=== PATIENT | female | born 1955 ===

== ENCOUNTER 2018-07-03 17:59 | Emergency (ER) | payer BC ==
[2018-07-03 18:26] VITALS: O2SAT 98
[2018-07-03] MEDS ORDERED: Sodium Chloride 0.9% 1,000 ML IV STA (19:42)
--- NOTE | 2018-07-03 20:46 | ED PDOC ---
HPI: Abdomen Time Seen by Provider: 07/03/18 19:20 Chief Complaint (Nursing): GI Problem History Per: Patient History/Exam Limitations: no limitations Onset/Duration Of Symptoms: Days Outside of [place] travel?: No Current Symptoms Are (Timing): Still Present Location Of Pain/Discomfort: Epigastric Additional Complaint(s): 63 year old with PMHx of HTN, HLD, thyroid disease, hiatal hernia? presenting with nausea, vomiting, diarrhea, and abdominal pain x 3 days. States she's had 3-4 episodes of each everyday, states she is unable to keep anything down. States she has burning epigastric pain that radiates up into her mouth. No fevers, chills, but states she's lost 5 pounds since the symptoms started. Past Medical History Reviewed: Historical Data, Nursing Documentation, Vital Signs Vital Signs: Last Vital Signs Temp 98.3 F 07/03/18 18:23 Pulse 84 07/03/18 18:23 Resp 16 07/03/18 18:23 BP 123/80 07/03/18 18:23 Pulse Ox 98 07/03/18 18:23 - Medical History PMH: Arthritis, Hiatal Hernia, HTN, Hypothyroidism - Family History Family History: States: Unknown Family Hx - Home Medications Home Medications: Ambulatory Orders Medication Instructions Recorded Famotidine [Pepcid] 20 mg PO BID #20 tab 07/03/18 Ondansetron ODT [Zofran ODT] 4 mg PO Q8 PRN #12 odt 07/03/18 - Allergies Allergies/Adverse Reactions: Allergies Allergy/AdvReac Type Severity Reaction Status Date / Time No Known Allergies Allergy Verified 07/03/18 18:23 Review of Systems ROS Statement: Except As Marked, All Systems Reviewed And Found Negative Constitutional: Positive for: Weight loss Gastrointestinal: Positive for: Nausea, Vomiting, Abdominal Pain, Diarrhea Physical Exam - Reviewed Nursing Documentation Reviewed: Yes Vital Signs Reviewed: Yes - Physical Exam Appears: Positive for: Well, Non-toxic, No Acute Distress Head Exam: Positive for: ATRAUMATIC, NORMAL INSPECTION, NORMOCEPHALIC Skin: Positive for: Normal Color, Warm, DRY Eye Exam: Positive for: EOMI, Normal appearance, PERRL ENT: Positive for: Normal ENT Inspection Neck: Positive for: Normal, Painless ROM Cardiovascular/Chest: Positive for: Regular Rate, Rhythm Respiratory: Positive for: CNT, Normal Breath Sounds Gastrointestinal/Abdominal: Positive for: Normal Exam, Soft, Tenderness (epigastric tenderness) Back: Positive for: Normal Inspection Extremity: Positive for: Normal ROM Neurological/Psych: Positive for: Awake, Alert, Normal Tone - Laboratory Results Result Diagrams: 07/03/18 20:50 07/03/18 20:50 - ECG O2 Sat by Pulse Oximetry: 98 Pulse Ox Interpretation: Normal Medical Decision Making Medical Decision Makin63 year old with HTN, HLD, Hiatal Hernia, Hypothyroidism presenting with nausea, vomiting, diarrhea, abdominal pain --Patient appears very comfortable, laughing, normal vitals, minor tenderness --Symptoms most likely gastroenteritis, less likely pancreatitis, biliary disease, colitis, diverticulitis --Will treat symptomatically, check labs, and re-eval 1105PM --Patient is feeling much improved, drinking water, vitals are stable, no longer having significant pain, states her throat just feels hot --Has mild hypkolemia, will repelete with K dur and provide info on K rich foods --Advised bland diet and rest, plenty of fluids --Very well appearing upon discharge Disposition - Clinical Impression Clinical Impression: Gastroenteritis - Patient ED Disposition Is Patient to be Admitted: No - Disposition Referrals: Justina Chavez [Outside] Disposition: Routine/Home Disposition Time: 23:07 Condition: IMPROVED Prescriptions: Famotidine [Pepcid] 20 mg PO BID #20 tab Ondansetron ODT [Zofran ODT] 4 mg PO Q8 PRN #12 odt PRN Reason: Nausea/Vomiting Instructions: Viral Gastroenteritis, Hypokalemia Forms: [employer] ([place])
[2018-07-03 21:01] LABS: BASO % 0.6 % (0.0-2.0); EOS % 0.9 % (0.0-4.0); HEMOGLOBIN 13.8 g/dL (12.0-16.0); LYMPH # 1.7 K/uL (1.0-4.3); LYMPH % 33.9 % (20.0-40.0); MEAN CELL VOLUME 90.4 fl (81.0-99.0); MEAN CORPUSCULAR HEMOGLOBIN 30.9 pg (27.0-31.0); MEAN CORPUSCULAR HGB CONC 34.2 g/dL (33.0-37.0); MEAN PLATELET VOLUME 8.3 fl (7.2-11.7); MONO # 0.7 K/uL (0.0-0.8); MONO % 13.9 % (0.0-10.0); NEUT # 2.5 K/uL (1.8-7.0); NEUT % 50.7 % (50.0-75.0); RBC 4.47 Mil/uL (3.80-5.20); RED CELL DISTRIBUTION WIDTH 14.1 % (11.5-14.5); WHITE BLOOD COUNT 4.9 K/uL (4.8-10.8)
[2018-07-03 21:11] LABS: ALBUMIN 4.2 g/dL (3.5-5.0); ALT/SGPT 36 U/L (9-52); AST/SGOT 49 U/L (14-36); BLOOD UREA NITROGEN 16 mg/dl (7-17); CALCIUM 9.3 mg/dL (8.4-10.2); GFR NON-AFRICAN AMERICAN > 60; LIPASE 46 U/L (23-300)
[2018-07-03 21:25] LABS: SQUAMOUS EPITHIAL 1 /hpf (0-5); URINE BACTERIA MOD (<OCC); URINE BILIRUBIN NEGATIVE (NEGATIVE); URINE CLARITY CLEAR (Clear); URINE COLOR YELLOW (YELLOW); URINE GLUCOSE (UA) NEG (NEGATIVE); URINE LEUKOCYTE ESTERASE NEG Leu/uL (Negative); URINE PROTEIN NEGATIVE (NEGATIVE); URINE UROBILINOGEN 0.2-1.0 mg/dL (0.2-1.0)
[2018-07-03 21:27] LABS: URINE BLOOD TRACE (NEGATIVE)
[2018-07-03 22:04] LABS: ALB/GLOB RATIO 1.4 (1.0-2.1)
[2018-07-03 23:27] VITALS: BP 120/79; PULSE 71; RESP 18; TEMP 98.6
[2018-07-03] MEDS ORDERED: Potassium Chloride 20 mEq ER Tab PO ONE (23:31)
== END 2018-07-03 23:45 | disposition home or self-care (01) ==
LOC: H.ER 17:59
DX: K52.9 Noninfective gastroenteritis and colitis, unspecified (principal); E03.9 Hypothyroidism, unspecified; I10 Essential (primary) hypertension
CPT/HCPCS: 80053; 81003; 83690; 85025; 96361; 96374; 96375; 99284; J2405; J7030